=== PATIENT | female | born 1955 | race Two or more races ===

== ENCOUNTER 2022-06-18 17:05 | Emergency (ER) | payer OTHER ==
[~2022-06-18] VITALS: Ht 154.9 cm; Wt 68.0 kg
[2022-06-18 18:03] VITALS: BP 135/85
[2022-06-18] MEDS ORDERED: HYDROcodone-ACET 5/325MG TAB PO ONE (22:15)
[2022-06-18] MEDS ORDERED: KETOROLAC TROMETH 30 MG/ML 1ML VIAL IM ONE (22:15)
[2022-06-18] MEDS ORDERED: ONDANSETRON ODT 4 MG TAB PO ONE (23:00)
[2022-06-19] MEDS ORDERED: IBUP600T28 PO (00:35)
== END 2022-06-19 00:53 | disposition home or self-care (01) ==
LOC: ER 17:05
DX: S63.014A Dislocation of distal radioulnar joint of right wrist, initial encounter (principal); M24.231 Disorder of ligament, right wrist; X58.XXXA Exposure to other specified factors, initial encounter; Y93.89 Activity, other specified; Y92.89 Other specified places as the place of occurrence of the external cause; Y99.0 Civilian activity done for income or pay
CPT/HCPCS: 73110; 73130; 96372; 99284; J1885